=== PATIENT | female | born 1965 | race Caucasian/White ===

== ENCOUNTER 2018-12-11 06:26 | Inpatient (IN) ==
[2018-12-11] MEDS ORDERED: CeFAZolin Syr 2,000MG/20 ML 2,000 MG/20 ML SYRINGE IVPB ONE ×2 (06:49→11:52)
[2018-12-11] MEDS ORDERED: Acetaminophen IV 1,000 MG/100 ML INFUS..BTL IVPB ONE (06:56)
[2018-12-11] MEDS ORDERED: Famotidine 20 MG/2 ML VIAL IVP ONE (06:56)
--- NOTE | 2018-12-11 06:56 | History & Physical Report ---
Date of Encounter: 12/11/18 Time of Encounter: 06:50 24 Hour HP Update - Instructions Instructions: If the History and Physical is less than 30 days old and was completed prior to A.M. admission and or procedure and has NOT been updated on calendar day of procedure please complete this update prior to performing procedure. - Update Patient reports changes in Medical Condition: No Changes in examination, assessment, or condition: No Changes in Medication: No Preop tests/diagnostics Reviewed: Yes Surgery Remains Indicated: Yes Consent for Planned Operative Procedure(s) Verified: Yes - Pre-Operative Checklist Preoperative Checklist Indicated: Yes Prophylactic Antibiotic Ordered: Yes Home Medications Include Beta Ernesto: No Is VTE Prophylaxis Indicated?: Yes
[2018-12-11] MEDS ORDERED: Scopolamine Patch 1.5 MG PATCH.TD72 TD ONE (06:57)
--- NOTE | 2018-12-11 06:58 | Anesthesia Evaluation PreOp ---
Date of Encounter: 12/11/18 Time of Encounter: 06:56 - Past History Planned Operation: Open repair of paraesophageal hernia and Lety Cardiac History: Denies any Significant Hx Pulmonary History: Denies Any Significant HX UNDERWRITING OPERATIONS MANAGER History: Other (anxiety, depression) Other Medical History: GERD, Other (hiatal hernia) Anesthesia History: No Prior Anesthetic Complications, Past Anesthesia (hysterectomy, kyle, colonoscopy, egd) Alcohol Use: none Drug use: none Medications and Allergies Famotidine [Heartburn Prevention] 20 mg PO BID PRN 10/08/18 [History] Lansoprazole [Prevacid] 30 mg PO DAILY 10/08/18 [History] Topiramate [Topamax] 100 mg PO DAILY 10/08/18 [History] Venlafaxine HCl [Venlafaxine HCl ER] 225 mg PO DAILY 10/08/18 [History] Allergy/AdvReac Type Severity Reaction Status Date / Time ivp dye Allergy Vomiting Uncoded 11/20/18 16:29 - Meds/Allergy Pre-op Review Medications Reviewed: Yes Allergies Reviewed: Yes Beta Blockers on Current Med List: No Anesthesia Results - Labs Laboratory Tests 09/17/18 11/20/18 09:35 16:35 WBC 7.9 Hgb 10.9 L Hct 36.5 Plt Count 420 H Sodium 140 Potassium 4.2 Chloride 108 H Carbon Dioxide 27 BUN 15 Glucose 102 Anesthesia Exam O2 Sat Height 1.6 m Weight 61.689 kg O2 Sat by Pulse Oximetry 100 Vital Signs Temp Pulse Resp BP Pulse Ox 97.7 F 72 18 131/83 100 12/11/18 06:46 12/11/18 06:46 12/11/18 06:46 12/11/18 06:46 12/11/18 06:46 Height: 1.6m Weight: 61kg NPO (# of Hours): >8 - HEENT Pupil (Motor): Pupils equal, EOMI Mallampati: I Teeth: Normal Oral Opening: Greater than 3 - UNDERWRITING OPERATIONS MANAGER LOC: Oriented UNDERWRITING OPERATIONS MANAGER Motor: Normal RUE, Normal LUE, Normal RLE, Normal LLE, Normal Face UNDERWRITING OPERATIONS MANAGER Sensory: Normal: RUE, LUE, RLE, LLE, Face - Cardiac Rhythm: Regular - Pulmonary Breath Sounds: bilateral Clear Respiratory Effort: Symmetrical Anesthesia Assess/Plan ASA Score: 2 Level of consciousness: Cooperative Anesthetic Plan: General Monitoring Plan: Standard Monitors Recovery Plan: PACU
[2018-12-11] MEDS ORDERED: Ringers Solution, Lactated 1,000 ML IVC SCH ×2 (07:00→07:15)
[2018-12-11] MEDS ORDERED: Albuterol 2.5 MG/3 ML NEBULIZER IH ONE (07:05)
[2018-12-11] MEDS ORDERED: Albuterol 2.5 MG/3 ML NEBULIZER ONE (07:07)
[2018-12-11] MEDS ORDERED: *HR* HYDROmorphone (PF) 1 MG/ML SYRINGE IVP PRN (07:08)
[2018-12-11] MEDS ORDERED: Ondansetron 4 MG/2 ML VIAL IVP ONE (07:08)
[2018-12-11] MEDS ORDERED: LIDOCAINE 1% PF 2 ML AMPUL ONE (07:08)
[2018-12-11] MEDS ORDERED: *HR* Meperidine 25 MG/ML SYRINGE IVP PRN (07:08)
[2018-12-11] MEDS ORDERED: *HR* Promethazine 25 MG/ML VIAL IVP PRN (07:08)
[2018-12-11] MEDS ORDERED: Dexamethasone 4 MG/ML VIAL ONE (07:08)
[2018-12-11] MEDS ORDERED: Lidocaine -MPF 4% 5 ML AMPUL ONE (07:09)
[2018-12-11] MEDS ORDERED: *HR* Propofol 200 MG/20 ML VIAL IVP ONE (07:09)
[2018-12-11] MEDS ORDERED: *HR* Rocuronium Bromide 50 MG/5 ML VIAL ONE (07:09)
[2018-12-11] MEDS ORDERED: *HR* FentaNYL (PF) 100 MCG/2 ML VIAL ONE ×2 (07:09→08:27)
[2018-12-11] MEDS ORDERED: Lidocaine -MPF 2% 2 ML VIAL ONE (07:09)
[2018-12-11] MEDS ORDERED: *HR* Midazolam HCl 2 MG/2 ML VIAL ONE (07:09)
[2018-12-11] MEDS ORDERED: *HR* Succinylcholine 200 MG/10 ML VIAL IVP ONE (07:09)
[2018-12-11] MEDS ORDERED: *HR* HYDROMORPHONE 2 MG/ML VIAL ONE (07:30)
[2018-12-11] MEDS ORDERED: CefOXitin 1,000 MG VIAL ONE (07:38)
[2018-12-11] MEDS ORDERED: *HR* Metoprolol 5 MG/5 ML VIAL IVP PRN ×2 (09:32→11:52)
[2018-12-11] MEDS ORDERED: OXYCODONE Oral CONC 10 MG/0.5 ML ORAL.SYG SL PRN (09:32)
[2018-12-11] MEDS ORDERED: Ondansetron 4 MG/2 ML VIAL IVP PRN ×2 (09:32→11:52)
[2018-12-11] MEDS ORDERED: *HR* OxyCODONE/APAP 5/325 TABLET PO PRN ×2 (09:32→11:52)
[2018-12-11] MEDS ORDERED: *HR* Morphine 2 MG/ML SYRINGE IVP PRN ×2 (09:34→11:52)
--- NOTE | 2018-12-11 09:40 | Operative Note ---
Date of procedure: 12/11/18 Pre-op diagnosis: Paraesophageal hernia and gastroesophageal reflux disease Post-op diagnosis: same Procedure: #1 open repair of paraesophageal hiatal hernia. #2 open Lety fundoplication Anesthesia: CHRISTIE Surgeon: Joon Izaguirre Was there an horticultural nursery assistant present: Yes Export Sales Assistant: Jayme Rosenthal Estimated blood loss (cc): 25 Specimen: Hernia sac Condition: stable Disposition: PACU Procedure in Detail: After informed consent the patient was taken to the major operating suite placed supine position and given adequate general endotracheal anesthesia. The abdomen was prepped and draped in sterile fashion utilizing ChloraPrep standard draping techniques. Timeout was taken major vertical midline incision between xiphoid and the umbilicus. The abdomen. Patient had approximately 50% of the stomach in the chest through a large hiatal hernia that was documented by CAT scan to be a paraesophageal hernia I mobilize the lateral segment of left lobe liver by dividing the triangular ligament. Bookwalter retractor was placed. The stomach was pulled down out of the chest and I divided the lesser omentum. Once this was done I was able to visually guide the placement of a 50-[place] lighted esophageal bougie to assist with esophageal dissection. The hernia sacs were divided at the level of the diaphragm all hernia sacs were removed from the mediastinum. I identified the right crura of the diaphragm. I then divided the complex hernia sacs covering the greater curvature as well as the short gastrics leaving the spleen. This allowed identification of the left crura of the diaphragm. Surround the esophagus and group the anterior and posterior vagus nerves with the esophagus. Hiatal hernia repair was performed with 5 stitches of 2-0 Ethibond with pledgets. This given excellent technical result in perfect tension of the esophageal hiatus on the esophagus. The cardia of the stomach Brought behind the Esophagus and I Performed Lety Fundoplication with 3 Stitches of 2-0 Ethibond with Pledgets. Attention Was Perfect. 2 Shoulder Stitches Were Placed between the Wrap the Diaphragm Using 2-0 Ethibond with Pledgets. This Secured the Wrap to the Diaphragm. Total Blood Loss 25 ML. 30 ML of Marcaine Was Used on the Fascia for Local Anesthetic. Fascia Was Closed with Looped 0 PDS. Skin Was Closed with Interrupted Vicryl Skin. She Tolerated the Procedure Well
[2018-12-11] MEDS ORDERED: 0.9 % Sodium Chloride 1,000 ML IVC SCH (09:45)
[2018-12-11] MEDS ORDERED: SUGAMMADEX SODIUM 500 MG/5 ML VIAL IV ONE (09:45)
[2018-12-11] MEDS ORDERED: Naloxone 0.4 MG/ML INJ ONE (10:16)
--- NOTE | 2018-12-11 11:20 | Anesthesia Evaluation Post Op ---
Date of Encounter: 12/11/18 Time of Encounter: 11:18 - Vital Signs Vital Signs: Vital Signs/O2 Sat, Most Current Temp Pulse Resp BP Pulse Ox 97.4 F L 71 9 155/94 97 12/11/18 10:36 12/11/18 10:51 12/11/18 10:51 12/11/18 10:51 12/11/18 10:51 - Lungs Lungs: Clear Ascult./Percussion - Airway Airway: Non-obstructed - Cardiovascular Regular Rate - Mental Status Mental Status: Asleep with brisk response to light stimulation - Pain Pain Scale: 0 Pain Scale used: Numeric (1 - 10) - Nausea Vomiting Nausea Vomiting: Not Present - Hydration Hydration: NPO Notes: 12/11/18 11:19 Pt became apneic in pacu and received narcan 0.1mg x1 with return of alertness and spotaneous breathing, will need pulse ox monitoring on the floor 12/11/18 11:19 - Discharge PostOp Status: Transfer Patient to floor
[2018-12-11] MEDS: 0.9 % Sodium Chloride 1,000 ML IVC SCH (12:36)
[2018-12-11] MEDS: *HR* Heparin 5,000 UNIT/ML VIAL SQ SCH (17:32)
[2018-12-11] MEDS ORDERED: *HR* Heparin 5,000 UNIT/ML VIAL SQ SCH (18:00)
[2018-12-11] MEDS: OXYCODONE Oral CONC 10 MG/0.5 ML ORAL.SYG SL PRN ×2 (19:12→23:46)
[2018-12-12] MEDS: 0.9 % Sodium Chloride 1,000 ML IVC SCH ×3 (02:50→23:45)
[2018-12-12] MEDS: *HR* Heparin 5,000 UNIT/ML VIAL SQ SCH ×2 (05:02→18:22)
[2018-12-12] MEDS: OXYCODONE Oral CONC 10 MG/0.5 ML ORAL.SYG SL PRN ×2 (05:03→10:09)
[2018-12-12] MEDS ORDERED: 0.9 % Sodium Chloride 1,000 ML IVC SCH (07:45)
[2018-12-12] MEDS ORDERED: Pantoprazole 40 MG VIAL IVP SCH (09:00)
[2018-12-12] MEDS ORDERED: Psyllium 1 PACKET POWD.PACK PO SCH (09:00)
[2018-12-12] MEDS: Topiramate 100 MG TABLET PO SCH (10:08)
[2018-12-12] MEDS: Pantoprazole 40 MG VIAL IVP SCH (10:08)
[2018-12-12] MEDS: Venlafaxine XR (24 HR) 75 MG CAP.ER.24H PO SCH (10:08)
[2018-12-12] MEDS ORDERED: Acetaminophen IV 1,000 MG/100 ML INFUS..BTL IVPB ONE (12:27)
--- NOTE | 2018-12-12 12:33 | General Surgery Progress Note ---
<Tanya Grider - Last Filed: 12/12/18 12:31> Date of Encounter: 12/12/18 Time of Encounter: 07:45 - Assessment and Plan (1) Paraesophageal hernia Current Visit: Yes Status: Acute Date of procedure: 12/11/18 Pre-op diagnosis: Paraesophageal hernia and gastroesophageal reflux disease Post-op diagnosis: same Procedure: #1 open repair of paraesophageal hiatal hernia. #2 open Lety fundoplication Anesthesia: GETA Surgeon: Joon Izaguirre POD #1 as above. This am patient stated pain well controlled and she was tolerating liquids. Upon reassessment at 1230, she states her abdominal discomfort has increased and she feels gassy. Her abdominal exam is otherwise unremarkable Plan: continue supportive care and discomfort management while awaiting full return of bowel function add one dose Ofirmev and fentanyl now add scheduled Toradol continue oxycodone for breakthrough pain Apply ice Q2H saline lock IV to ambulate; decreased rate to KVO add simethicone serial abdominal exams ambulate TID out of bed to chair TID daily dressing changes (apply dry dressings are May leave open to air according to patient preference) apply abdominal binder for comfort may shower daily beginning 12/13/2018 remain in the hospital through the weekend for pain and diet management (2) GERD (gastroesophageal reflux disease) Current Visit: Yes Status: Acute Continue PPI Qualifiers: Esophagitis presence: with esophagitis Qualified Code(s): K21.0 - Gastro-es ophageal reflux disease with esophagitis (3) Depression Current Visit: Yes Status: Chronic Continue home medications Qualifiers: Depression Type: unspecified Qualified Code(s): F32.9 - Major depressive disorder, single episode, unspecified (4) DVT prophylaxis Current Visit: Yes Status: Acute Continue PPI IV Subjective Patient reports: no new complaints, still having pain, tolerating liquids well, voiding w/o difficulty, flatus, no bowel movement, afebrile Objective Vital Signs - Last 8 Hours Temp Pulse Resp BP Pulse Ox 12/12/18 12:30 61 158/89 12/12/18 11:16 98.6 F 72 14 171/82 93 12/12/18 10:06 98.5 F 68 14 160/92 93 12/12/18 07:11 98.4 F 85 16 160/87 90 Intake and Output 12/11/18 12/12/18 12/12/18 23:59 07:59 15:59 Intake Total 160 / 160 1100 / 1100 565 / 565 Output Total 300 / 300 250 / 250 400 / 400 Balance -140 / -140 850 / 850 165 / 165 Intake: IV Fluids 100 / 100 1100 / 1100 505 / 505 0.9 % Sodium Chloride 1,000 ML 1000 / 1000 505 / 505 @ 75 mls/hr IVC .[id number] [facility] Rx #:[id number] Ancef 2,000 MG In 0.9 % Sodium 100 / 100 100 / 100 Chloride 100 ML @ 200 mls/hr IVPB Q8HR [facility] Rx#:[id number] Oral 60 / 60 0 / 0 60 / 60 Output: Urine 300 / 300 250 / 250 400 / 400 Other: Meal Dinner Breakfast Percent of Meal Consumed 0% 0% # Bowel Movements 0 0 Weight 62.9 kg Patient Weight 12/12/18 23:59 Weight 62.9 kg - General physical appearance moderate distress (No distress in am assessemnt; reassessment at aprox 1230 noted patient with increased abd pain and feeling gassy), moderate pain - Eyes normal ocular movement - ENT atraumatic, normocephalic - Neck Neck exam: trachea midline - Respiratory normal expansion, normal respiratory effort, clear to auscultation - Cardiovascular Cardiovascular exam: Present: RRR - Abdomen Abdomen: Present: bowel sounds present, soft, tender (expected postoperative) Hernia: none - Incision Incision: Present: clean and dry, intact - Integumentary no rash - Neurologic normal coordination, normal sensation - Musculoskeletal normal posture - Psychiatric oriented to time, oriented to person, oriented to place, speech is normal, memory intact Consult Discharge Plan - Plan Instructions: Adult Open Lety Fundoplication (DC) Additional Instructions: General Instructions After Lety Surgery 1. No pushing, pulling, or lifting greater than 15 lbs for 6 weeks. 2. You may shower beginning today, but no tub baths, soaking, or swimming for 2 weeks. 3. You may resume driving when you are off narcotics and are safe to react in a car. 4. Take narcotics as directed. Do not take more narcotics then directed and do not share your narcotics with any other person. Do not drink alcohol while on narcotics. 5. Take stool softeners (Colace) or a water based laxative (Miramax) while taking narcotics. You may hold for loose stools. 6. Report any fevers greater than 100.5F, increase abdominal discomfort, drai nage that looks like pus, increased redness or pain at the surgical site, or any vomiting. 7. Report any pain in the calves, shortness of breath, or rapid heartbeat. 8. Continue to take your heartburn medications until directed to stop. Do not stop them abruptly as this can cause symptoms of reflux. 9. Do not drink alcohol or carbonated beverages. 10. Do not deviate from the recommended Lety diet below. Doing so can affect your outcomes. [place] [facility] Diet After Lety Fundoplication Surgery This diet information is for patients who have recently had Lety Fundoplication Surgery to correct reflux disease or to repair various types of hernias, such as hiatal hernia and intrathoracic stomach. This diet may also be used for other gastrointestinal surgeries, such as Heller myotomy and repair of achalasia. The diet will help control diarrhea, excess gas and swallowing problems, which may occur after this type of surgery. Important Steps to Keep Your Stomach From Stretching Eat small, frequent meals (six to eight per day). This will help you consume the majority of the nutrients you need without causing your stomach to feel full or distended. Drinking large amounts of fluids with meals can stretch your stomach. You may drink fluids between meals as often as you like, but limit fluids to 1/2 cup (4 fluid ounces) with meals and one cup (8 fluid ounces) with snacks. Sit upright while eating, and stay upright for 30 minutes after each meal. [place] can help food move through your digestive tract. Do not lie down after eating. Sit upright for 2 hours after your last meal or snack of the day. Eat very slowly. Take your time when eating. Take small bites and chew your food well to tester operator helper in swallowing and digestion. Avoid crusty breads and sticky, gummy foods, such as bananas, fresh doughy breads, rolls and doughnuts. These types of foods become sticky and difficult to swallow. Toasted breads tend to be better tolerated. Lastly, if you eat sweets, consume them at the end of your meal to avoid a group of symptoms referred to as dumping syndrome. This describes the rapid emptying of foods from the stomach to the small intestine. Sweetened beverages, candy and desserts move more rapidly and dump quickly into the intestines. This can cause symptoms of nausea, weakness, cold sweats, cramps, diarrhea and dizzy spells. Important Steps to Avoid Gas Do not drink through a straw, chew gum, or chew tobacco. These actions cause you to swallow air, which will produce excess gas in your stomach. Chew with your mouth closed and chew your food thoroughly. Avoid foods that cause stomach gas and distention. The foods include corn, dried beans, peas, lentils, onions, broccoli, cauliflower, and any food item from the cabbage family. Do not drink carbonated drinks, alcohol, citrus, or tomato products. What Will I Be Able To Eat and Drink After Surgery After Lety Fundoplication Surgery, your diet will be advanced slowly by your s urgeon. Generally, you will be on a thin/clear liquid diet for the first 10 days. Then you will advance to the full liquid diet for 4 days and eventually to a Lety soft diet for 7 days. After any surgery, protein consumption is important for healing. To get enough protein, drink 3-4 [place] Instant Breakfast, Ensure, or equivalent daily. Reminder: Carbonated beverages (such as sodas, energy drinks, flavored carbonated water), and alcohol are not permitted for the 1st 6 to 8 weeks after surgery. After this time you may attempt to reintroduce them in small amounts. Please note: Dairy products such as milk, ice cream, and pudding may cause diarrhea in some people after surgery. You may need to avoid milk products. If so you may substitute them with lactose free beverages, such as soy, rice, lactate, or almond milk. Please be aware that each patient's tolerance to food is different. Your doctor will advance your diet depending on how well you progress after surgery. Thin Liquid Diet The first diet after Lety Fundoplication Surgery is the thin liquids diet. Follow this diet for postoperative days 1-10 12/12- 12/22. Thin liquids include: Apple, Cranberry, or Grape Juice (no citrus juice) Chicken Broth Beef Broth Flavored Gelatin (Jell-O) Decaffeinated Tea or Coffee Popsicles or French Ice Caffeinated Beverages Will Be Permitted Based upon Tolerance and at a later date Dairy if tolerated Thin Milkshakes (strawberry or vanilla flavored- No chocolate) Drink 3-4 [place] instant breakfast, Ensure, or equivalent daily. May be mixed with dairy for thin milkshakes Full Liquid Diet Follow this diet for postoperative days 11-14 12/23 - 12/26. Full liquid diet includes anything in the thin liquid diet plus: Milk: Dairy, Soy, Rice, and [place] (No Chocolate) Cream of Wheat, Cream of Rice, Grits Strained Creamed Soups (No Tomato or Broccoli) Vanilla and [place] Flavored Ice Cream Sherbet Vanilla and Butterscotch Pudding (No Chocolate or Coconut) Continue 3-4 [place] Instant Breakfast, Ensure, or an Equivalent Daily. May be mixed with Dairy for Thin Milkshakes. Lety Soft Diet Follow this diet for postoperative days 15-20 12/27 - 01/01. (If you are consuming enough protein, you may stop the protein supplements). Please note: You will need extra fluids throughout the day to meet your fluid needs. Referrals: Suma Bailey CNP [Primary Care Provider] - Tanya Grider CNP [Advanced Practice Nurse] - 12/26/18 9:00 am Prescriptions: Ondansetron ODT [Zofran ODT] 4 mg SL Q4HR PRN #30 tab.rapdis PRN Reason: Nausea RX: OxyCODONE/APAP 5/325 [Percocet 5/325 MG] 1 each PO Q6HR PRN 7 Days #28 tablet PRN Reason: Pain Docusate Sodium [Colace] 100 mg PO BID PRN #30 capsule PRN Reason: Constipation RX: Ibuprofen 800 mg PO Q8H PRN #42 tablet PRN Reason: Mild Pain <Zina,Joon T - Last Filed: 12/12/18 13:47> Date of Encounter: 12/12/18 Objective Vital Signs - Last 8 Hours Temp Pulse Resp BP Pulse Ox 12/12/18 12:30 61 158/89 12/12/18 11:16 98.6 F 72 14 171/82 93 12/12/18 10:06 98.5 F 68 14 160/92 93 12/12/18 07:11 98.4 F 85 16 160/87 90 Intake and Output 12/11/18 12/12/18 12/12/18 23:59 07:59 15:59 Intake Total 160 / 160 1100 / 1100 824 / 824 Output Total 300 / 300 250 / 250 400 / 400 Balance -140 / -140 850 / 850 424 / 424 Intake: IV Fluids 100 / 100 1100 / 1100 764 / 764 0.9 % Sodium Chloride 1,000 ML 1000 / 1000 664 / 664 @ 75 mls/hr IVC .[id number] [facility] Rx #:[id number] Ofirmev 1,000 mg/100 ml 1,000 100 / 100 mg In 100 ml @ 400 mls/hr IVPB ONCE ONE Rx#:[id number] Ancef 2,000 MG In 0.9 % Sodium 100 / 100 100 / 100 Chloride 100 ML @ 200 mls/hr IVPB Q8HR [facility] Rx#:[id number] Oral 60 / 60 0 / 0 60 / 60 Output: Urine 300 / 300 250 / 250 400 / 400 Other: Meal Dinner Lunch Percent of Meal Consumed 0% 0% # Bowel Movements 0 0 Weight 62.9 kg Patient Weight 12/12/18 23:59 Weight 62.9 kg - Labs 12/12/18 12:43 12/12/18 12:43 Diabetes panel 12/12/18 Range/Units 12:43 Sodium 137 (136-145) mEq/L Potassium 3.6 (3.5-5.1) mEq/L Chloride 109 H (98-107) mEq/L Carbon Dioxide 22 L (23-29) mEq/L BUN 8 (6-20) mg/dL Creatinine 0.71 (0.60-1.20) mg/dL Glucose 114 H (70-105) mg/dL Calcium 8.6 (8.6-10.3) mg/dL Calcium panel 12/12/18 Range/Units 12:43 Calcium 8.6 (8.6-10.3) mg/dL Pituitary panel 12/12/18 Range/Units 12:43 Sodium 137 (136-145) mEq/L Potassium 3.6 (3.5-5.1) mEq/L Chloride 109 H (98-107) mEq/L Carbon Dioxide 22 L (23-29) mEq/L BUN 8 (6-20) mg/dL Creatinine 0.71 (0.60-1.20) mg/dL Glucose 114 H (70-105) mg/dL Calcium 8.6 (8.6-10.3) mg/dL Adrenal panel 12/12/18 Range/Units 12:43 Sodium 137 (136-145) mEq/L Potassium 3.6 (3.5-5.1) mEq/L Chloride 109 H (98-107) mEq/L Carbon Dioxide 22 L (23-29) mEq/L BUN 8 (6-20) mg/dL Creatinine 0.71 (0.60-1.20) mg/dL Glucose 114 H (70-105) mg/dL Calcium 8.6 (8.6-10.3) mg/dL - Attending Attestation The patient is seen and evaluated morning rounds. She is postoperative day 1 from open paraesophageal hiatal hernia repair. She is having expected inc isional pain and operative field pain. This is moderately well controlled. Incision is clean and dry. Continue IV hydration and supportive care. She may have clear liquids. Joon Izaguirre MD FACS
[2018-12-12] MEDS ORDERED: *HR* FentaNYL (PF) 100 MCG/2 ML VIAL IVP STA (12:40)
[2018-12-12 13:03] LABS: Basophils % 0.3 %; Eosinophils % 0.2 %; Hematocrit 34.3 % (35.3-44.9); Hemoglobin 10.3 g/dL (11.5-15.4); Immature Granulocytes % 0.3 % (0-4); Lymphocytes # 2.2 K/mcL (0.6-4.6); Lymphocytes % 15.4 %; Mean Corpuscular Hemoglobin 24.4 pg (28.0-33.3); Mean Corpuscular Volume 81.3 fL (83.0-100.0); Monocytes # 1.4 K/mcL (0.0-1.3); Monocytes % 9.6 %; Neutrophils # 10.7 K/mcL (1.6-8.9); Platelet Count 400 K/mcL (140-400); Red Blood Count 4.22 M/mcL (3.82-4.97); Red Cell Distribution Width 18.9 % (11.5-14.5); Segmented Neutrophils % 74.2 %
[2018-12-12] MEDS: Ketorolac 15 MG/ML VIAL IVP SCH ×2 (13:18→18:22)
[2018-12-12 13:19] LABS: BUN/Creatinine Ratio 11 (6-26); Blood Urea Nitrogen 8 mg/dL (6-20); Calcium 8.6 mg/dL (8.6-10.3); Carbon Dioxide 22 mEq/L (23-29); Chloride 109 mEq/L (98-107); Glucose 114 mg/dL (70-105); Osmolality,Calculated 283 (280-300); Potassium 3.6 mEq/L (3.5-5.1); Sodium 137 mEq/L (136-145); eGFR For Non-African Americans > 60 (> 60)
--- NOTE | 2018-12-12 13:20 | Event Note ---
Date of Encounter: 12/12/18 Time of Encounter: 13:17 Bedside RN concerned with giving fentanyl as patient was sedated after surgery and needed narcan. RN reports that patient had been sleeping all day until recently increase in discomfort. Given RN concern safely treating patient, It is certainly reasonable to try non-narcotic pain medications first and if this is not helpful, RN is satisfied to give the fentanyl.
[2018-12-13] MEDS: Ketorolac 15 MG/ML VIAL IVP SCH ×5 (00:31→23:18)
[2018-12-13] MEDS: 0.9 % Sodium Chloride 1,000 ML IVC SCH ×2 (00:34→07:34)
[2018-12-13 04:34] LABS: BUN/Creatinine Ratio 13 (6-26); Blood Urea Nitrogen 8 mg/dL (6-20); Calcium 8.6 mg/dL (8.6-10.3); Carbon Dioxide 17 mEq/L (23-29); Chloride 110 mEq/L (98-107); Glucose 78 mg/dL (70-105); Osmolality,Calculated 281 (280-300); Potassium 3.3 mEq/L (3.5-5.1); Sodium 137 mEq/L (136-145); eGFR For Non-African Americans > 60 (> 60)
[2018-12-13 04:38] LABS: Basophils % 0.1 %; Eosinophils % 0.2 %; Hematocrit 32.8 % (35.3-44.9); Immature Granulocytes % 0.3 % (0-4); Lymphocytes # 2.2 K/mcL (0.6-4.6); Lymphocytes % 15.1 %; Mean Corpuscular HGB Conc 30.5 g/dL (31.6-35.5); Mean Corpuscular Hemoglobin 24.8 pg (28.0-33.3); Mean Corpuscular Volume 81.2 fL (83.0-100.0); Mean Platelet Volume 10.7 fL (9.4-12.4); Monocytes # 1.3 K/mcL (0.0-1.3); Monocytes % 9.1 %; Neutrophils # 10.9 K/mcL (1.6-8.9); Platelet Count 390 K/mcL (140-400); Red Blood Count 4.04 M/mcL (3.82-4.97); Red Cell Distribution Width 18.9 % (11.5-14.5); Segmented Neutrophils % 75.2 %
[2018-12-13] MEDS: *HR* Heparin 5,000 UNIT/ML VIAL SQ SCH ×2 (05:26→17:19)
[2018-12-13] MEDS: Pantoprazole 40 MG VIAL IVP SCH (07:36)
[2018-12-13] MEDS: Venlafaxine XR (24 HR) 75 MG CAP.ER.24H PO SCH (07:36)
[2018-12-13] MEDS: Topiramate 100 MG TABLET PO SCH (07:37)
--- NOTE | 2018-12-13 13:50 | General Surgery Progress Note ---
Date of Encounter: 12/13/18 Time of Encounter: 13:48 - Assessment and Plan (1) Paraesophageal hernia Current Visit: Yes Status: Acute s.p paraesophageal hernia repair and LETY tolerating liquids passing flatus/no bm yet prn pain control OOB to chair and ambulate prn antiemetics (2) Depression Current Visit: Yes Status: Chronic continue home medication Qualifiers: Depression Type: unspecified Qualified Code(s): F32.9 - Major depressive disorder, single episode, unspecified (3) DVT prophylaxis Current Visit: Yes Status: Acute heparin sq Subjective Patient reports: no new complaints, still having pain, pain is less, tolerating liquids well, flatus, no bowel movement, afebrile Objective Vital Signs - Last 8 Hours Temp Pulse Resp BP Pulse Ox 12/13/18 10:27 98.5 F 96 15 148/87 96 12/13/18 06:42 98.5 F 88 15 152/98 97 Intake and Output 12/12/18 12/13/18 12/13/18 23:59 07:59 15:59 Intake Total 336 / 336 1394 / 1394 400 / 400 Output Total 0 / 0 650 / 650 600 / 600 Balance 336 / 336 744 / 744 -200 / -200 Intake: IV Fluids 336 / 336 1274 / 1274 400 / 400 0.9 % Sodium Chloride 1,000 ML 1274 / 1274 400 / 400 @ 35 mls/hr IVC .Q24H JACK Rx#: [id number] Oral 0 / 0 120 / 120 0 / 0 Output: Urine 0 / 0 650 / 650 600 / 600 Other: # Voids 1 Weight 63.5 kg Patient Weight 12/13/18 23:59 Weight 63.5 kg - General physical appearance well developed, well nourished, no distress, moderate pain - Eyes PERRL, normal ocular movement - ENT normal mucosa, normocephalic - Neck Neck exam: trachea midline - Respiratory normal expansion, clear to auscultation - Cardiovascular Cardiovascular exam: Present: RRR - Abdomen Abdomen: Present: bowel sounds present, soft, tender (appropriate post op tenderness). Absent: guarding, rebound - Incision Incision: Present: clean and dry, intact - Integumentary no rash, no growths - Neurologic CN 2-12 grossly intact - Musculoskeletal normal posture - Psychiatric oriented to time, oriented to person, oriented to place, speech is normal, m [place] intact - Labs 12/13/18 03:41 12/13/18 03:41 Diabetes panel 12/13/18 Range/Units 03:41 Sodium 137 (136-145) mEq/L Potassium 3.3 L (3.5-5.1) mEq/L Chloride 110 H (98-107) mEq/L Carbon Dioxide 17 L (23-29) mEq/L BUN 8 (6-20) mg/dL Creatinine 0.63 (0.60-1.20) mg/dL Glucose 78 (70-105) mg/dL Calcium 8.6 (8.6-10.3) mg/dL Calcium panel 12/13/18 Range/Units 03:41 Calcium 8.6 (8.6-10.3) mg/dL Pituitary panel 12/13/18 Range/Units 03:41 Sodium 137 (136-145) mEq/L Potassium 3.3 L (3.5-5.1) mEq/L Chloride 110 H (98-107) mEq/L Carbon Dioxide 17 L (23-29) mEq/L BUN 8 (6-20) mg/dL Creatinine 0.63 (0.60-1.20) mg/dL Glucose 78 (70-105) mg/dL Calcium 8.6 (8.6-10.3) mg/dL Adrenal panel 12/13/18 Range/Units 03:41 Sodium 137 (136-145) mEq/L Potassium 3.3 L (3.5-5.1) mEq/L Chloride 110 H (98-107) mEq/L Carbon Dioxide 17 L (23-29) mEq/L BUN 8 (6-20) mg/dL Creatinine 0.63 (0.60-1.20) mg/dL Glucose 78 (70-105) mg/dL Calcium 8.6 (8.6-10.3) mg/dL Consult Discharge Plan - Plan Instructions: Adult Open Lety Fundoplication (DC) Additional Instructions: General Instructions After Lety Surgery 1. No pushing, pulling, or lifting greater than 15 lbs for 6 weeks. 2. You may shower beginning today, but no tub baths, soaking, or swimming for 2 weeks. 3. You may resume driving when you are off narcotics and are safe to react in a car. 4. Take narcotics as directed. Do not take more narcotics then directed and do not share your narcotics with any other person. Do not drink alcohol while on narcotics. 5. Take stool softeners (Colace) or a water based laxative (Miramax) while taking narcotics. You may hold for loose stools. 6. Report any fevers greater than 100.5F, increase abdominal discomfort, drainage that looks like pus, increased redness or pain at the surgical site, or any vomiting. 7. Report any pain in the calves, shortness of breath, or rapid heartbeat. 8. Continue to take your heartburn medications until directed to stop. Do not stop them abruptly as this can cause symptoms of reflux. 9. Do not drink alcohol or carbonated beverages. 10. Do not deviate from the recommended Lety diet below. Doing so can affect your outcomes. [place] [facility] Diet After Lety Fundoplication Surgery This diet information is for patients who have recently had Lety Fundoplication Surgery to correct reflux disease or to repair various types of hernias, such as hiatal hernia and intrathoracic stomach. This diet may also be used for other gastrointestinal surgeries, such as Heller myotomy and repair of achalasia. The diet will help control diarrhea, excess gas and swallowing problems, which may occur after this type of surgery. Important Steps to Keep Your Stomach From Stretching Eat small, frequent meals (six to eight per day). This will help you consume the majority of the nutrients you need without causing your stomach to feel full or distended. Drinking large amounts of fluids with meals can stretch your stomach. You may drink fluids between meals as often as you like, but limit fluids to 1/2 cup (4 fluid ounces) with meals and one cup (8 fluid ounces) with snacks. Sit upright while eating, and stay upright for 30 minutes after each meal. [place] can help food move through your digestive tract. Do not lie down after eating. Sit upright for 2 hours after your last meal or snack of the day. Eat very slowly. Take your time when eating. Take small bites and chew your food well to library helper in swallowing and digestion. Avoid crusty breads and sticky, gummy foods, such as bananas, fresh doughy breads, rolls and doughnuts. These types of foods become sticky and difficult to swallow. Toasted breads tend to be better tolerated. Lastly, if you eat sweets, consume them at the end of your meal to avoid a group of symptoms referred to as dumping syndrome. This describes the rapid emptying of foods from the stomach to the small intestine. Sweetened beverages, candy and desserts move more rapidly and dump quickly into the intestines. This can cause symptoms of nausea, weakness, cold sweats, cramps, diarrhea and dizzy spells. Important Steps to Avoid Gas Do not drink through a straw, chew gum, or chew tobacco. These actions cause you to swallow air, which will produce excess gas in your stomach. Chew with your mouth closed and chew your food thoroughly. Avoid foods that cause stomach gas and distention. The foods include corn, dried beans, peas, lentils, onions, broccoli, cauliflower, and any food item from the cabbage family. Do not drink carbonated drinks, alcohol, citrus, or tomato products. What Will I Be Able To Eat and Drink After Surgery After Lety Fundoplication Surgery, your diet will be advanced slowly by your surgeon. Generally, you will be on a thin/clear liquid diet for the first 10 days. Then you will advance to the full liquid diet for 4 days and eventually to a Lety soft diet for 7 days. After any surgery, protein consumption is important for healing. To get enough protein, drink 3-4 [place] Instant Breakfast, Ensure, or equivalent daily. Reminder: Carbonated beverages (such as sodas, energy drinks, flavored carbonated water), and alcohol are not permitted for the 1st 6 to 8 weeks after surgery. After this time you may attempt to reintroduce them in small amounts. Please note: Dairy products such as milk, ice cream, and pudding may cause diarrhea in some people after surgery. You may need to avoid milk products. If so you may substitute them with lactose free beverages, such as soy, rice, lactate, or almond milk. Please be aware that each patient's tolerance to food is different. Your doctor will advance your diet depending on how well you progress after surgery. Thin Liquid Diet The first diet after Lety Fundoplication Surgery is the thin liquids diet. Follow this diet for postoperative days 1-10 12/12- 12/22. Thin liquids include: Apple, Cranberry, or Grape Juice (no citrus juice) Chicken Broth Beef Broth Flavored Gelatin (Jell-O) Decaffeinated Tea or Coffee Popsicles or [place] Ice Caffeinated Beverages Will Be Permitted Based upon Tolerance and at a later date Dairy if tolerated Thin Milkshakes (strawberry or vanilla flavored- No chocolate) Drink 3-4 [place] instant breakfast, Ensure, or equivalent daily. May be mixed with dairy for thin milkshakes Full Liquid Diet Follow this diet for postoperative days 11-14 12/23 - 12/26. Full liquid diet includes anything in the thin liquid diet plus: Milk: Dairy, Soy, Rice, and [place] (No Chocolate) Cream of Wheat, Cream of Rice, Grits Strained Creamed Soups (No Tomato or Broccoli) Vanilla and [place] Flavored Ice Cream Sherbet Vanilla and Butterscotch Pudding (No Chocolate or Coconut) Continue 3-4 [place] Instant Breakfast, Ensure, or an Equivalent Daily. May be mixed with Dairy for Thin Milkshakes. Lety Soft Diet Follow this diet for postoperative days 15-20 12/27 - 01/01. (If you are consuming enough protein, you may stop the protein supplements). Please note: You will need extra fluids throughout the day to meet your fluid needs. Referrals: Suma Bailey CNP [Primary Care Provider] - Tanya Grider CNP [Advanced Practice Nurse] - 12/26/18 9:00 am Prescriptions: Ondansetron ODT [Zofran ODT] 4 mg SL Q4HR PRN #30 tab.rapdis PRN Reason: Nausea OxyCODONE/APAP 5/325 [Percocet 5/325 MG] 1 each PO Q6HR PRN 7 Days #28 tablet PRN Reason: Pain Docusate Sodium [Colace] 100 mg PO BID PRN #30 capsule PRN Reason: Constipation Ibuprofen 800 mg PO Q8H PRN #42 tablet PRN Reason: Mild Pain
[2018-12-13] MEDS: D5% in 0.45% NACL w KCl 20 MEQ/1,000 ML MLS IVC SCH (14:42)
[2018-12-13] MEDS: OXYCODONE Oral CONC 10 MG/0.5 ML ORAL.SYG SL PRN ×2 (14:46→20:16)
[2018-12-14] MEDS: Ketorolac 15 MG/ML VIAL IVP SCH ×2 (05:04→11:54)
[2018-12-14] MEDS: *HR* Heparin 5,000 UNIT/ML VIAL SQ SCH ×2 (05:04→17:33)
[2018-12-14 05:44] LABS: Basophils % 0.4 %; Eosinophils # 0.3 K/mcL (0.0-0.6); Eosinophils % 2.6 %; Hematocrit 32.3 % (35.3-44.9); Hemoglobin 9.8 g/dL (11.5-15.4); Immature Granulocytes % 0.2 % (0-4); Lymphocytes # 2.1 K/mcL (0.6-4.6); Lymphocytes % 19.1 %; Mean Corpuscular HGB Conc 30.3 g/dL (31.6-35.5); Mean Corpuscular Hemoglobin 24.4 pg (28.0-33.3); Mean Corpuscular Volume 80.5 fL (83.0-100.0); Mean Platelet Volume 10.2 fL (9.4-12.4); Monocytes # 1.2 K/mcL (0.0-1.3); Monocytes % 10.8 %; Neutrophils # 7.4 K/mcL (1.6-8.9); Platelet Count 407 K/mcL (140-400); Red Blood Count 4.01 M/mcL (3.82-4.97); Red Cell Distribution Width 19.1 % (11.5-14.5); Segmented Neutrophils % 66.9 %
[2018-12-14 05:55] LABS: BUN/Creatinine Ratio 15 (6-26); Blood Urea Nitrogen 9 mg/dL (6-20); Calcium 8.9 mg/dL (8.6-10.3); Carbon Dioxide 19 mEq/L (23-29); Chloride 110 mEq/L (98-107); Glucose 96 mg/dL (70-105); Osmolality,Calculated 285 (280-300); Potassium 3.3 mEq/L (3.5-5.1); Sodium 138 mEq/L (136-145); eGFR For Non-African Americans > 60 (> 60)
[2018-12-14] MEDS: Topiramate 100 MG TABLET PO SCH (07:12)
[2018-12-14] MEDS: Venlafaxine XR (24 HR) 75 MG CAP.ER.24H PO SCH (07:12)
[2018-12-14] MEDS: Pantoprazole 40 MG VIAL IVP SCH (07:12)
[2018-12-14] MEDS: Simethicone 80 MG TAB.CHEW PO PRN ×2 (07:15→15:02)
--- NOTE | 2018-12-14 14:12 | General Surgery Progress Note ---
Date of Encounter: 12/14/18 Time of Encounter: 14:10 - Assessment and Plan (1) Paraesophageal hernia Current Visit: Yes Status: Acute s.p paraesophageal hernia repair and LETY tolerating liquids - continue passing flatus/no bm yet prn pain control OOB to chair and ambulate prn antiemetics sliv dc planning (2) Depression Current Visit: Yes Status: Chronic continue home medication Qualifiers: Depression Type: unspecified Qualified Code(s): F32.9 - Major depressive disorder, single episode, unspecified (3) DVT prophylaxis Current Visit: Yes Status: Acute heparin sq Subjective Patient reports: no new complaints, feels better, still having pain, pain is less, tolerating liquids well, flatus, no bowel movement, afebrile Objective Vital Signs - Last 8 Hours Temp Pulse Resp BP Pulse Ox 12/14/18 10:15 98.5 F 91 15 145/89 95 12/14/18 06:31 98.2 F 87 15 144/94 93 Intake and Output 12/13/18 12/14/18 12/14/18 23:59 07:59 15:59 Intake Total 643 / 643 550 / 550 220 / 220 Output Total 0 / 0 0 / 0 100 / 100 Balance 643 / 643 550 / 550 120 / 120 Intake: IV Fluids 103 / 103 550 / 550 190 / 190 KCl 20mEq IN D5%-0.45 NACL 20 103 / 103 550 / 550 190 / 190 meq In 1,000 ml @ 40 mls/hr IVC .Q24H JACK Rx#:[id number] Oral 540 / 540 0 / 0 30 / 30 Output: Urine 0 / 0 0 / 0 100 / 100 Other: Meal CLEARS Lunch # Voids 1 Weight 64.5 kg Patient Weight 12/14/18 23:59 Weight 64.5 kg - General physical appearance well developed, well nourished, no distress, no pain - Eyes PERRL, normal ocular movement - ENT normal mucosa, normocephalic - Neck Neck exam: trachea midline - Respiratory normal expansion, clear to auscultation - Cardiovascular Cardiovascular exam: Present: RRR - Abdomen Abdomen: Present: bowel sounds present, soft, tender (appropriate post op tenderness). Absent: guarding, rebound - Incision Incision: Present: clean and dry, intact - Integumentary no rash - Neurologic CN 2-12 grossly intact - Musculoskeletal normal gait, normal posture - Psychiatric oriented to time, oriented to person, oriented to place, speech is normal, memory intact - Labs 12/14/18 04:52 12/14/18 04:52 Diabetes panel 12/14/18 Range/Units 04:52 Sodium 138 (136-145) mEq/L Potassium 3.3 L (3.5-5.1) mEq/L Chloride 110 H (98-107) mEq/L Carbon Dioxide 19 L (23-29) mEq/L BUN 9 (6-20) mg/dL Creatinine 0.61 (0.60-1.20) mg/dL Glucose 96 (70-105) mg/dL Calcium 8.9 (8.6-10.3) mg/dL Calcium panel 12/14/18 Range/Units 04:52 Calcium 8.9 (8.6-10.3) mg/dL Pituitary panel 12/14/18 Range/Units 04:52 Sodium 138 (136-145) mEq/L Potassium 3.3 L (3.5-5.1) mEq/L Chloride 110 H (98-107) mEq/L Carbon Dioxide 19 L (23-29) mEq/L BUN 9 (6-20) mg/dL Creatinine 0.61 (0.60-1.20) mg/dL Glucose 96 (70-105) mg/dL Calcium 8.9 (8.6-10.3) mg/dL Adrenal panel 12/14/18 Range/Units 04:52 Sodium 138 (136-145) mEq/L Potassium 3.3 L (3.5-5.1) mEq/L Chloride 110 H (98-107) mEq/L Carbon Dioxide 19 L (23-29) mEq/L BUN 9 (6-20) mg/dL Creatinine 0.61 (0.60-1.20) mg/dL Glucose 96 (70-105) mg/dL Calcium 8.9 (8.6-10.3) mg/dL Consult Discharge Plan - Plan Instructions: Adult Open Lety Fundoplication (DC) Additional Instructions: General Instructions After Lety Surgery 1. No pushing, pulling, or lifting greater than 15 lbs for 6 weeks. 2. You may shower beginning today, but no tub baths, soaking, or swimming for 2 weeks. 3. You may resume driving when you are off narcotics and are safe to react in a car. 4. Take narcotics as directed. Do not take more narcotics then directed and do not share your narcotics with any other person. Do not drink alcohol while on narcotics. 5. Take stool softeners (Colace) or a water based laxative (Miramax) while taking narcotics. You may hold for loose stools. 6. Report any fevers greater than 100.5F, increase abdominal discomfort, drainage that looks like pus, increased redness or pain at the surgical site, or any vomiting. 7. Report any pain in the calves, shortness of breath, or rapid heartbeat. 8. Continue to take your heartburn medications until directed to stop. Do not stop them abruptly as this can cause symptoms of reflux. 9. Do not drink alcohol or carbonated beverages. 10. Do not deviate from the recommended Lety diet below. Doing so can affect your outcomes. [place] [facility] Diet After Lety Fundoplication Surgery This diet information is for patients who have recently had Lety Fundoplication Surgery to correct reflux disease or to repair various types of hernias, such as hiatal hernia and intrathoracic stomach. This diet may also be used for other gastrointestinal surgeries, such as Heller myotomy and repair of achalasia. The diet will help control diarrhea, excess gas and swallowing problems, which may occur after this type of surgery. Important Steps to Keep Your Stomach From Stretching Eat small, frequent meals (six to eight per day). This will help you consume the majority of the nutrients you need without causing your stomach to feel full or distended. Drinking large amounts of fluids with meals can stretch your stomach. You may drink fluids between meals as often as you like, but limit fluids to 1/2 cup (4 fluid ounces) with meals and one cup (8 fluid ounces) with snacks. Sit upright while eating, and stay upright for 30 minutes after each meal. [place] can help food move through your digestive tract. Do not lie down after eating. Sit upright for 2 hours after your last meal or snack of the day. Eat very slowly. Take your time when eating. Take small bites and chew your food well to calender wind up helper in swallowing and digestion. Avoid crusty breads and sticky, gummy foods, such as bananas, fresh doughy breads, rolls and doughnuts. These types of foods become sticky and difficult to swallow. Toasted breads tend to be better tolerated. Lastly, if you eat sweets, consume them at the end of your meal to avoid a group of symptoms referred to as dumping syndrome. This describes the rapid emptying of foods from the stomach to the small intestine. Sweetened beverages, candy and desserts move more rapidly and dump quickly into the intestines. This can cause symptoms of nausea, weakness, cold sweats, cramps, diarrhea and dizzy spells. Important Steps to Avoid Gas Do not drink through a straw, chew gum, or chew tobacco. These actions cause you to swallow air, which will produce excess gas in your stomach. Chew with your mouth closed and chew your food thoroughly. Avoid foods that cause stomach gas and distention. The foods include corn, dried beans, peas, lentils, onions, broccoli, cauliflower, and any food item from the cabbage family. Do not drink carbonated drinks, alcohol, citrus, or tomato products. What Will I Be Able To Eat and Drink After Surgery After Lety Fundoplication Surgery, your diet will be advanced slowly by your surgeon. Generally, you will be on a thin/clear liquid diet for the first 10 days. Then you will advance to the full liquid diet for 4 days and eventually to a Lety soft diet for 7 days. After any surgery, protein consumption is important for healing. To get enough protein, drink 3-4 [place] Instant Breakfast, Ensure, or equivalent daily. Reminder: Carbonated beverages (such as sodas, energy drinks, flavored carbonat ed water), and alcohol are not permitted for the 1st 6 to 8 weeks after surgery. After this time you may attempt to reintroduce them in small amounts. Please note: Dairy products such as milk, ice cream, and pudding may cause diarrhea in some people after surgery. You may need to avoid milk products. If so you may substitute them with lactose free beverages, such as soy, rice, lactate, or almond milk. Please be aware that each patient's tolerance to food is different. Your doctor will advance your diet depending on how well you progress after surgery. Thin Liquid Diet The first diet after Lety Fundoplication Surgery is the thin liquids diet. Follow this diet for postoperative days 1-10 12/12- 12/22. Thin liquids include: Apple, Cranberry, or Grape Juice (no citrus juice) Chicken Broth Beef Broth Flavored Gelatin (Jell-O) Decaffeinated Tea or Coffee Popsicles or [place] Ice Caffeinated Beverages Will Be Permitted Based upon Tolerance and at a later date Dairy if tolerated Thin Milkshakes (strawberry or vanilla flavored- No chocolate) Drink 3-4 [place] instant breakfast, Ensure, or equivalent daily. May be mixed with dairy for thin milkshakes Full Liquid Diet Follow this diet for postoperative days -14 12/23 - 12/26. Full liquid diet includes anything in the thin liquid diet plus: Milk: Dairy, Soy, Rice, and [place] (No Chocolate) Cream of Wheat, Cream of Rice, Grits Strained Creamed Soups (No Tomato or Broccoli) Vanilla and [place] Flavored Ice Cream Sherbet Vanilla and Butterscotch Pudding (No Chocolate or Coconut) Continue 3-4 [place] Instant Breakfast, Ensure, or an Equivalent Daily. May be mixed with Dairy for Thin Milkshakes. Lety Soft Diet Follow this diet for postoperative days 15-20 12/27 - 01/01. (If you are consuming enough protein, you may stop the protein supplements). Please note: You will need extra fluids throughout the day to meet your fluid needs. Referrals: Suma Bailey CNP [Primary Care Provider] - Tanya Grider CNP [Advanced Practice Nurse] - 12/26/18 9:00 am Prescriptions: Ondansetron ODT [Zofran ODT] 4 mg SL Q4HR PRN #30 tab.rapdis PRN Reason: Nausea OxyCODONE/APAP 5/325 [Percocet 5/325 MG] 1 each PO Q6HR PRN 7 Days #28 tablet PRN Reason: Pain Docusate Sodium [Colace] 100 mg PO BID PRN #30 capsule PRN Reason: Constipation Ibuprofen 800 mg PO Q8H PRN #42 tablet PRN Reason: Mild Pain
[2018-12-14] MEDS: *HR* OxyCODONE/APAP 5/325 TABLET PO PRN ×2 (15:01→19:41)
[2018-12-15 04:45] LABS: Basophils # 0.1 K/mcL (0.0-0.2); Basophils % 0.6 %; Eosinophils # 0.2 K/mcL (0.0-0.6); Eosinophils % 2.1 %; Hematocrit 37.1 % (35.3-44.9); Immature Granulocytes % 0.4 % (0-4); Lymphocytes # 2.2 K/mcL (0.6-4.6); Lymphocytes % 19.8 %; Mean Corpuscular HGB Conc 30.7 g/dL (31.6-35.5); Mean Corpuscular Hemoglobin 24.7 pg (28.0-33.3); Mean Corpuscular Volume 80.5 fL (83.0-100.0); Mean Platelet Volume 9.5 fL (9.4-12.4); Monocytes # 1.1 K/mcL (0.0-1.3); Monocytes % 9.6 %; Neutrophils # 7.5 K/mcL (1.6-8.9); Platelet Count 451 K/mcL (140-400); Red Blood Count 4.61 M/mcL (3.82-4.97); Red Cell Distribution Width 19.1 % (11.5-14.5); Segmented Neutrophils % 67.5 %
[2018-12-15 04:47] LABS: Hemoglobin 11.4 g/dL (11.5-15.4)
[2018-12-15 05:05] LABS: BUN/Creatinine Ratio 17 (6-26); Blood Urea Nitrogen 9 mg/dL (6-20); Calcium 8.8 mg/dL (8.6-10.3); Carbon Dioxide 18 mEq/L (23-29); Chloride 111 mEq/L (98-107); Glucose 97 mg/dL (70-105); Osmolality,Calculated 283 (280-300); Potassium 3.4 mEq/L (3.5-5.1); Sodium 137 mEq/L (136-145); eGFR For Non-African Americans > 60 (> 60)
[2018-12-15 06:33] VITALS: BP 136/92
[2018-12-15] MEDS: *HR* Heparin 5,000 UNIT/ML VIAL SQ SCH (06:33)
[2018-12-15] MEDS: D5% in 0.45% NACL w KCl 20 MEQ/1,000 ML MLS IVC SCH (07:08)
--- NOTE | 2018-12-15 08:08 | Discharge Summary ---
<Tanya Grider - Last Filed: 12/15/18 11:13> Orders not resulted at time of discharge: Pending orders 12/11/18 09:35 Surgical Pathology [PTH] Routine Date of Encounter: 12/15/18 Time of Encounter: 08:00 - Discharge Diagnosis (1) Paraesophageal hernia Priority: Primary Status: Acute (2) GERD (gastroesophageal reflux disease) Priority: Primary Status: Acute Qualifiers: Esophagitis presence: with esophagitis Qualified Code(s): K21.0 - Gastro- esophageal reflux disease with esophagitis (3) Depression Priority: Secondary Status: Chronic Qualifiers: Depression Type: unspecified Qualified Code(s): F32.9 - Major depressive disorder, single episode, unspecified (4) DVT prophylaxis Priority: Secondary Status: Acute General Surgery Exam Initial Vital Signs Temp Pulse Resp BP Pulse Ox 97.7 F 72 18 131/83 100 12/11/18 06:46 12/11/18 06:46 12/11/18 06:46 12/11/18 06:46 12/11/18 06:46 VITAL SIGNS: Reviewed. See [facility] GENERAL: In no apparent distress. HEENT: Normocephalic, atraumatic, pupils are equal and reactive, extraocular motions intact, oropharynx is pink and moist, there is no neck adenopathy or JVD noted. CHEST/RESPIRATORY: The thorax is free from signs of trauma. Lung sounds: clear to auscultation, normal respiratory effort CARDIAC: Regular rate and rhythm. Normal S1 and S2, without murmurs, gallops, or rubs. VASCULAR: No Edema. 2+ peripheral pulses. ABDOMEN: soft, expected postopeartive tenderness, active bowel sounds INCISION: Surgical incision is clean, dry, and intact. There are no signs of cellulitis or infection noted. MUSCULOSKELETAL: Good range of motion of all major joints. Extremities without clubbing, cyanosis or edema. NEUROLOGIC EXAM: Alert and oriented x 3. Speech normal. Follows commands. PSYCHIATRIC: Mood normal. SKIN: No rash or lesions. - Hospital Course Hospital course: Ms. Frias is a 53 year old female who presented on 12/11/2018 for an elective open repair of paraesophageal hiatal hernia and open Lety fundoplication with Dr. Izaguirre. Her hospital course was uncomplicated. She is ambulating and voiding without difficulty, tolerating a diet of then liquids and protein supplement without nausea or vomiting, vital signs are stable, and she is afebrile. We will begin discharge planning to home with a follow-up in the office in approximately 2 weeks. She is advised to adhere to the Lety diet at [place] and to refrain from taking Adipex. - Time Spent with Patient Total time spent providing and/or coordinating discharge services: - Discharge Medications Prescriptions: Ondansetron ODT [Zofran ODT] 4 mg SL Q4HR PRN #30 tab.rapdis PRN Reason: Nausea RX: OxyCODONE/APAP 5/325 [Percocet 5/325 MG] 1 each PO Q6HR PRN 7 Days #28 tablet PRN Reason: Pain Docusate Sodium [Colace] 100 mg PO BID PRN #30 capsule PRN Reason: Constipation RX: Ibuprofen 800 mg PO Q8H PRN #42 tablet PRN Reason: Mild Pain RX: Omeprazole [PriLOSEC] 20 mg PO DAILY@0630 #30 capsule. Home Medications: RX: Topiramate [Topamax] 100 mg PO DAILY 10/08/18 [History] RX: Venlafaxine HCl [Venlafaxine HCl ER] 225 mg PO DAILY 10/08/18 [History] Docusate Sodium [Colace] 100 mg PO BID PRN #30 capsule 12/12/18 [Rx] Ondansetron ODT [Zofran ODT] 4 mg SL Q4HR PRN #30 tab.rapdis 12/12/18 [Rx] RX: Ascorbic Acid [Vitamin C] 500 mg PO DAILY 12/12/18 [History] RX: Ferrous Sulfate 325 mg PO DAILY 12/12/18 [History] RX: Ibuprofen 800 mg PO Q8H PRN #42 tablet 12/12/18 [Rx] RX: Ibuprofen [Ibu-200] 600 mg PO DAILY PRN 12/12/18 [History] RX: OxyCODONE/APAP 5/325 [Percocet 5/325 MG] 1 each PO Q6HR PRN 7 Days #28 tablet 12/12/18 [Rx] RX: Omeprazole [PriLOSEC] 20 mg PO DAILY@0630 #30 capsule. 12/15/18 [Rx] Allergies/Adverse Reactions: Allergy/AdvReac Type Severity Reaction Status Date / Time ivp dye Allergy Vomiting Uncoded 12/12/18 13:02 Date of admission: 12/11/18 06:56 Primary care physician: Suma Bailey CNP Labs on day of discharge: Labs from last 24 hours 12/15/18 12/15/18 12/12/18 04:31 04:31 10:53 WBC 11.1 RBC 4.61 Hgb 11.4 L D Hct 37.1 MCV 80.5 L MCH 24.7 L MCHC 30.7 L RDW 19.1 H Plt Count 451 H MPV 9.5 Immature Gran % 0.4 Seg Neutrophils % 67.5 Lymphocytes % 19.8 Monocytes % 9.6 Eosinophils % 2.1 Basophils % 0.6 Neutrophils # 7.5 Lymphocytes # 2.2 Monocytes # 1.1 Eosinophils # 0.2 Basophils # 0.1 Sodium 137 Potassium 3.4 L Chloride 111 H Carbon Dioxide 18 L BUN 9 Creatinine 0.54 L Est GFR ( Amer) > 60 Est GFR (Non-Af Amer) > 60 BUN/Creatinine Ratio 17 Glucose 97 POC Glucose 103 H Calculated Osmolality 283 Calcium 8.8 - Patient Status Disposition: Home, Self-Care Condition: Good Functional capacity at discharge: independent ambulation Overall status at discharge: patient is progressing back to baseline - Discharge Instructions Instructions: Adult Open Lety Fundoplication (DC) Follow Up With: Tanya Grider CNP [Advanced Practice Nurse] - 12/26/18 9:00 am Additional Instructions: Do not take phentermine. You will lose weight from the Lety diet. If you take this you will lose too much weight and you may have cardiac arrhythmias. General Instructions After Lety Surgery 1. No pushing, pulling, or lifting greater than 15 lbs for 6 weeks. 2. You may shower beginning today, but no tub baths, soaking, or swimming for 2 weeks. 3. You may resume driving when you are off narcotics and are safe to react in a car. 4. Take narcotics as directed. Do not take more narcotics then directed and do not share your narcotics with any other person. Do not drink alcohol while on narcotics. 5. Take stool softeners (Colace) or a water based laxative (Miramax) while taking narcotics. You may hold for loose stools. 6. Report any fevers greater than 100.5F, increase abdominal discomfort, drainage that looks like pus, increased redness or pain at the surgical site, or any vomiting. 7. Report any pain in the calves, shortness of breath, or rapid heartbeat. 8. Continue to take your heartburn medications until directed to stop. Do not stop them abruptly as this can cause symptoms of reflux. 9. Do not drink alcohol or carbonated beverages. 10. Do not deviate from the recommended Lety diet below. Doing so can affect your outcomes. [place] [facility] Diet After Lety Fundoplication Surgery This diet information is for patients who have recently had Lety Fundoplication Surgery to correct reflux disease or to repair various types of hernias, such as hiatal hernia and intrathoracic stomach. This diet may also be used for other gastrointestinal surgeries, such as Heller myotomy and repair of achalasia. The diet will help control diarrhea, excess gas and swallowing problems, which may occur after this type of surgery. Important Steps to Keep Your Stomach From Stretching Eat small, frequent meals (six to eight per day). This will help you consume the majority of the nutrients you need without causing your stomach to feel full or distended. Drinking large amounts of fluids with meals can stretch your stomach. You may drink fluids between meals as often as you like, but limit fluids to 1/2 cup (4 fluid ounces) with meals and one cup (8 fluid ounces) with snacks. Sit upright while eating, and stay upright for 30 minutes after each meal. [place] can help food move through your digestive tract. Do not lie down after eating. Sit upright for 2 hours after your last meal or snack of the day. Eat very slowly. Take your time when eating. Take small bites and chew your food well to cook helper pastry in swallowing and digestion. Avoid crusty breads and sticky, gummy foods, such as bananas, fresh doughy breads, rolls and doughnuts. These types of foods become sticky and difficult to swallow. Toasted breads tend to be better tolerated. Lastly, if you eat sweets, consume them at the end of your meal to avoid a group of symptoms referred to as dumping syndrome. This describes the rapid emptying of foods from the stomach to the small intestine. Sweetened beverages, candy and desserts move more rapidly and dump quickly into the intestines. This can cause symptoms of nausea, weakness, cold sweats, cramps, diarrhea and dizzy spells. Important Steps to Avoid Gas Do not drink through a straw, chew gum, or chew tobacco. These actions cause you to swallow air, which will produce excess gas in your stomach. Chew with your mouth closed and chew your food thoroughly. Avoid foods that cause stomach gas and distention. The foods include corn, dried beans, peas, lentils, onions, broccoli, cauliflower, and any food item from the cabbage family. Do not drink carbonated drinks, alcohol, citrus, or tomato products. What Will I Be Able To Eat and Drink After Surgery After Lety Fundoplication Surgery, your diet will be advanced slowly by your surgeon. Generally, you will be on a thin/clear liquid diet for the first 10 days. Then you will advance to the full liquid diet for 4 days and eventually to a Lety soft diet for 7 days. After any surgery, protein consumption is important for healing. To get enough protein, drink 3-4 [place] Instant Breakfast, Ensure, or equivalent daily. Reminder: Carbonated beverages (such as sodas, energy drinks, flavored carbonated water), and alcohol are not permitted for the 1st 6 to 8 weeks after surgery. After this time you may attempt to reintroduce them in small amounts. Please note: Dairy products such as milk, ice cream, and pudding may cause diarrhea in some people after surgery. You may need to avoid milk products. If so you may substitute them with lactose free beverages, such as soy, rice, lactate, or almond milk. Please be aware that each patient's tolerance to food is different. Your doctor will advance your diet depending on how well you progress after surgery. Thin Liquid Diet The first diet after Lety Fundoplication Surgery is the thin liquids diet. Follow this diet for postoperative days 1-10 12/12- 12/22. Thin liquids include: Apple, Cranberry, or Grape Juice (no citrus juice) Chicken Broth Beef Broth Flavored Gelatin (Jell-O) Decaffeinated Tea or Coffee Popsicles or [place] Ice Caffeinated Beverages Will Be Permitted Based upon Tolerance and at a later date Dairy if tolerated Thin Milkshakes (strawberry or vanilla flavored- No chocolate) Drink 3-4 [place] instant breakfast, Ensure, or equivalent daily. May be mixed with dairy for thin milkshakes Full Liquid Diet Follow this diet for postoperative days 11-14 12/23 - 12/26. Full liquid diet includes anything in the thin liquid diet plus: Milk: Dairy, Soy, Rice, and [place] (No Chocolate) Cream of Wheat, Cream of Rice, Grits Strained Creamed Soups (No Tomato or Broccoli) Vanilla and [place] Flavored Ice Cream Sherbet Vanilla and Butterscotch Pudding (No Chocolate or Coconut) Continue 3-4 [place] Instant Breakfast, Ensure, or an Equivalent Daily. May be mixed with Dairy for Thin Milkshakes. Lety Soft Diet Follow this diet for postoperative days 15-20 12/27 - 01/01. (If you are consuming enough protein, you may stop the protein supplements). Please note: You will need extra fluids throughout the day to meet your fluid ne eds. - Diet and Activity Activity: increase activity as tolerated (No lifting greater than 15 pounds for 6 weeks) Diet: other (Do not deviate from the Lety diet) <Joon Izaguirre - Last Filed: 12/16/18 13:18> Date of Encounter: 12/15/18 General Surgery Exam Initial Vital Signs Temp Pulse Resp BP Pulse Ox 97.7 F 72 18 131/83 100 12/11/18 06:46 12/11/18 06:46 12/11/18 06:46 12/11/18 06:46 12/11/18 06:46 - Hospital Course Hospital course: Ms. Frias is a 53 year old female - Time Spent with Patient Total time spent providing and/or coordinating discharge services: Date of admission: 12/11/18 06:56 Primary care physician: Suma Bailey CNP - Attending Attestation The patient is seen and evaluated on morning rounds with the clinical nurse practitioner. Her pain control is excellent and she is ready for discharge from the hospital. She has no reflux symptoms. Follow-up one week. Joon Izaguirre MD FACS
[2018-12-15] MEDS: Venlafaxine XR (24 HR) 75 MG CAP.ER.24H PO SCH (08:23)
[2018-12-15] MEDS: Topiramate 100 MG TABLET PO SCH (08:23)
== END 2018-12-15 10:00 | disposition home or self-care (01) | DRG 328 ==
LOC: SAMDAY 06:26 → 3ANU 06:56
PROVIDERS: ADMIT Surgery; ATTEND Surgery